=== PATIENT | male | born 1975 | race Caucasian/White ===

== ENCOUNTER 2016-06-27 10:06 | Inpatient (IN) | payer OTHER ==
--- NOTE | 2016-06-27 10:29 | PDOC ---
History of Present Illness - General History Source: Patient - History of Present Illness Initial Comments: 06/27/16 10:30 The patient is a 40-year-old man, accompanied by spouse, with a significant past medical history of alcohol abuse who presents to the emergency department for further evaluation of hyperglycemia. As per patient, he reports he has been newly diagnosed with diabetes mellitus, approximately 3 days ago, when outpatient labs showed a blood sugar in the 700s. Patient reports he has yet to see a B[employer], therefore no discussion has been made to manage his diabetes mellitus. Patient denies any family history of diabetes mellitus, both maternal/paternal. Patient reports compliance with fluids. No other complaints. No fever, chills., generalized weakness. No chest pain, lightheaded, dizziness, palpitations. No abdominal pain, nausea, vomiting, diarrhea. <Carola Ramirez - Last Filed: 06/27/16 16:54> <Julián Ochoa - Last Filed: 06/27/16 17:05> - General Chief Complaint: Blood Sugar Problem Stated Complaint: HIGH SUGAR Past History <Carola Ramirez - Last Filed: 06/27/16 16:54> - Past Medical History GI Disorders: Yes (Pancreatitis?) - Immunization History Immunization Up to Date: No - Psycho/Social/Smoking Cessation Hx Anxiety: No Suicidal Ideation: No Smoking History: Never smoked Have you smoked in the past 12 months: No Information on smoking cessation initiated: No Hx Alcohol Use: Yes (drinks daily) Substance Use Type: Alcohol <Julián Ochoa - Last Filed: 06/27/16 17:05> - Past Medical History Allergies/Adverse Reactions: Allergies Allergy/AdvReac Type Severity Reaction Status Date / Time No Known Allergies Allergy Verified 06/27/16 10:22 Home Medications: Ambulatory Orders NK [No Known Home Medication] 11/17/14 Review of Systems - Review of Systems Able to Perform ROS?: Yes Comments:: 06/27/16 10:30 GENERAL/CONSTITUTIONAL: No fever or chills. No weakness. HEAD, EYES, EARS, NOSE AND THROAT: No change in vision. No ear pain or discharge. No sore throat. CARDIOVASCULAR: No chest pain or shortness of breath. RESPIRATORY: No cough, wheezing, or hemoptysis. GASTROINTESTINAL: No nausea, vomiting, diarrhea or constipation. GENITOURINARY: No dysuria, frequency, or change in urination. MUSCULOSKELETAL: No joint or muscle swelling or pain. No neck or back pain. SKIN: No rash NEUROLOGIC: No headache, vertigo, loss of consciousness, or change in strength/ sensation. ENDOCRINE: Yes: +Hyperglycemic. HEMATOLOGIC/LYMPHATIC: No anemia, easy bleeding, or history of blood clots. ALLERGIC/IMMUNOLOGIC: No hives or skin allergy. <RamirezLuis ManuelCarola - Last Filed: 06/27/16 16:54> *Physical Exam - Vital Signs Last Vital Signs Temp Pulse Resp BP Pulse Ox 98.7 F 87 18 108/80 100 06/27/16 10:19 06/27/16 10:19 06/27/16 10:19 06/27/16 10:19 06/27/16 10:19 - Physical Exam Comments: 06/27/16 10:41 GENERAL: Awake, alert, and fully oriented, in no acute distress HEAD: No signs of trauma EYES: PERRLA, EOMI, sclera anicteric, conjunctiva clear ENT: Auricles normal inspection, hearing grossly normal, nares patent, oropharynx clear without exudates. +Dry mucosa NECK: Normal ROM, supple, no lymphadenopathy, JVD, or masses LUNGS: Breath sounds equal, clear to auscultation bilaterally. No wheezes, and no crackles HEART: Regular rate and rhythm, normal S1 and S2, no murmurs, rubs or gallops ABDOMEN: Soft, nontender, normoactive bowel sounds. No guarding, no rebound. No masses EXTREMITIES: Normal range of motion, no edema. No clubbing or cyanosis. No cords, erythema, or tenderness NEUROLOGICAL: Cranial nerves II through XII grossly intact. Normal speech <Ramirez,Carola - Last Filed: 06/27/16 16:54> - Vital Signs Last Vital Signs Temp Pulse Resp BP Pulse Ox 98.7 F 87 18 108/80 100 06/27/16 10:19 06/27/16 10:19 06/27/16 10:19 06/27/16 10:19 06/27/16 10:19 <Julián Ochoa - Last Filed: 06/27/16 17:05> ED Treatment Course - LABORATORY CBC & Chemistry Diagram: 06/27/16 10:50 06/27/16 10:50 <Carola Ramirez - Last Filed: 06/27/16 16:54> - LABORATORY CBC & Chemistry Diagram: 06/27/16 10:50 06/27/16 10:50 <Julián Ochoa - Last Filed: 06/27/16 17:05> Medical Decision Making - Medical Decision Making 06/27/16 16:55 Spoke to his PCP, Dr. Adrian Carrasco. Case was discussed. Accepts case. <Carola Ramirez - Last Filed: 06/27/16 16:54> *DC/Admit/Observation/Transfer - Attestations Scribe Attestion: 06/27/16 10:42 Documentation prepared by Carola Ramirez, acting as medical sonographer for Julián Ochoa MD. <Carola Ramirez - Last Filed: 06/27/16 16:54> - Discharge Dispostion Admit: Yes <Julián Ochoa - Last Filed: 06/27/16 17:05> Diagnosis at time of Disposition: Diabetes mellitus Qualifiers: Diabetes mellitus type: type 1 Diabetes mellitus complication status: with hyperglycemia Qualified Code(s): E10.65 - Type 1 diabetes mellitus with hyperglycemia - Discharge Dispostion Condition at time of disposition: Stable
[2016-06-27] MEDS ORDERED: SODIUM CHLORIDE 2,000 ML IV STA (10:45)
[2016-06-27 11:11] LABS: BASOPHIL 1.3 % (0-2.0); MCH 29.5 pg (25.7-33.7); MCHC 34.2 g/dl (32.0-35.9); MEAN CELL VOLUME 86.4 fl (80-96); MEAN PLT VOLUME 9.2 fl (7.5-11.1); NEUTROPHILS 43.9 % (42.8-82.8); PLATELET COUNT 219 K/MM3 (134-434); RDW 12.3 % (11.9-15.9); WHITE BLOOD COUNT 3.3 K/mm3 (4.0-10.0)
[2016-06-27 11:34] LABS: ALBUMIN 4.4 g/dl (3.4-5.0); ALK PHOS 136 U/L (45-117); ANION GAP 12 (8-16); BILIRUBIN,TOTAL 1.2 mg/dL (0.2-1.0); CALCIUM 9.5 mg/dL (8.5-10.1); CO2 26 mmol/L (21-32); SGOT/AST 14 U/L (15-37); SGPT/ALT 21 U/L (12-78); TOT PROT 7.4 g/dl (6.4-8.2)
[2016-06-27 11:42] LABS: ARTERIAL BLD GAS O2 SATURATION 95.7 % (90-98.9); ARTERIAL BLOOD GAS BASE EXCESS -4.8 meq/l (-2-2); ARTERIAL BLOOD GAS HCO3 19.9 meq/L (22-26); ARTERIAL BLOOD GAS PO2 93.9 mmHg (80-100); ARTERIAL BLOOD GAS pH 7.35 (7.35-7.45)
[2016-06-27 11:43] LABS: ALLENS TEST POSITIVE; ART PUNCT SITE LEFT RADIAL; LPM/O2% 21%; METHEMOGLOBIN 1.6 % (0.4-1.5); PT. ON O2? NO; TYPE OF O2 ROOM AIR
[2016-06-27 11:48] LABS: GLUCOSE,RANDOM 397 mg/dL (74-106)
[2016-06-27 12:04] LABS: URINE APPEARANCE CLEAR; URINE BILIRUBIN NEGATIVE (NEGATIVE); URINE BLOOD NEGATIVE (NEGATIVE); URINE COLOR STRAW; URINE GLUCOSE (UA) 3+ (NEGATIVE); URINE KETONE 2+ (NEGATIVE); URINE LEUK ESTERASE NEGATIVE (NEGATIVE); URINE NITRITE NEGATIVE (NEGATIVE); URINE PROTEIN NEGATIVE (NEGATIVE); URINE UROBILINOGEN NEGATIVE E.U./dl (0.2-1.0)
[2016-06-27 12:43] LABS: URINE MARIJUANA THC NEGATIVE ng/ml (CUTOFF=50)
[2016-06-27 13:34] LABS: ACETONE SERUM NEGATIVE (NEGATIVE)
[2016-06-27] MEDS ORDERED: INSULIN REGULAR HUMAN 100 UNITS/ML *VIAL IVPUSH ONE (14:41)
[2016-06-27] MEDS ORDERED: INSULIN REGULAR HUMAN 100 UNITS/ML *VIAL ONE (14:53)
[2016-06-27 18:28] VITALS: BMI 23.0
[2016-06-27] MEDS ORDERED: INSULIN DETEMIR 100 UNITS/ML MDV SQ SCH (22:00)
[2016-06-27] MEDS ORDERED: INSULIN DETEMIR 100 UNITS/ML MDV SQ ONE (23:15)
[2016-06-28] MEDS: INSULIN SLIDING SCALE (NOVOLOG) 1 VIAL SQ SCH ×4 (00:16→18:19)
[2016-06-28 07:44] LABS: CHOLESTEROL 193 mg/dL (50-200)
[2016-06-28 07:46] LABS: LDL CHOLESTEROL (ONLY SJRH) 124 mg/dL (5-100)
--- NOTE | 2016-06-28 09:46 | EKG ---
Test Reason : Blood Pressure : / mmHG Vent. Rate : 065 BPM Atrial Rate : 065 BPM P-R Int : 150 ms QRS Dur : 102 ms QT Int : 412 ms P-R-T Axes : 059 079 063 degrees QTc Int : 428 ms NORMAL SINUS RHYTHM EARLY REPOLARIZATION NORMAL ECG WHEN COMPARED WITH ECG OF 18-NOV-2014 03:04, NO SIGNIFICANT CHANGE WAS FOUND Confirmed by MARILU WADDELL MD ([id number]) on 06/28/2016 9:45:59 AM Referred By: Overread By: MARILU WADDELL MD
--- NOTE | 2016-06-28 10:42 | HP ---
Admitting History and Physical - Primary Care Physician PCP: Adrian Carrasco - Admission Chief Complaint: Weight Loss History of Present Illness: Pt is a 40 yr old man admitted for new onset DM. He was seen last Monday in my office where he presented for evaluation of weight loss. He lost at least 40 lbs in about 4-6 months. This was associated with polyuria and polydipsia. Labs done showed Glu 697 with Bicarb of 15, and he was advised to go to the ED on Monday. He came yesterday and was admitted. History Source: Patient Limitations to Obtaining History: No Limitations - Past Medical History Gastrointestinal: Yes: Pancreatitis Hepatobiliary: Yes: Other (Steatosis) - Past Surgical History Past Surgical History: Yes: None - Smoking History Smoking history: Never smoked Have you smoked in the past 12 months: No - Alcohol/Substance Use Hx Alcohol Use: Yes (drinks daily) Home Medications - Allergies Allergies/Adverse Reactions: Allergies Allergy/AdvReac Type Severity Reaction Status Date / Time No Known Allergies Allergy Verified 06/27/16 10:22 - Home Medications Home Medications: Ambulatory Orders NK [No Known Home Medication] 11/17/14 Family Disease History - Family Disease History Family History: Denies Review of Systems - Review of Systems Constitutional: reports: Unintentional Wgt. Loss, Weakness Genitourinary: reports: Frequency Physical Examination Vital Signs: Vital Signs Temperature 97.6 F 06/28/16 06:00 Pulse Rate 77 06/28/16 06:00 Respiratory Rate 18 06/28/16 06:00 Blood Pressure 106/59 06/28/16 06:00 O2 Sat by Pulse Oximetry (%) 100 06/27/16 20:33 Constitutional: Yes: Thin Eyes: Yes: Conjunctiva Clear, PERRL HENT: Yes: Normocephalic Neck: Yes: Trachea Midline Cardiovascular: Yes: Regular Rate and Rhythm Respiratory: Yes: CTA Bilaterally Gastrointestinal: Yes: Normal Bowel Sounds, Soft. No: Tenderness Neurological: Yes: Alert, Oriented Imaging - Results Chest X-ray: Report Reviewed Problem List - Problems (1) Diabetes mellitus Code(s): E11.9 - TYPE 2 DIABETES MELLITUS WITHOUT COMPLICATIONS Qualifiers: Diabetes mellitus type: type 1 Qualified Code(s): E10.65 - Type 1 diabetes mellitus with hyperglycemia Assessment/Plan Pt with new onset DM Start Levemir 10u QHS Novolog sliding scale FSS AC Diabetic teaching ADA 1800 saeed Nutrition cosult Start Atorvastatin 10 mg QHS Start Losartan 25 mg QD Start Janumet 50/500 mg QD
[2016-06-28] MEDS: LOSARTAN POTASSIUM 25 MG TABLET PO SCH (13:11)
--- NOTE | 2016-06-28 16:02 | CONSULT ---
Consult Consult Specialty:: Endocrinology Referred by:: Dr Carrasco Reason for Consultation:: Hyperglycemia - History of Present Illness Chief Complaint: Weight loss History of Present Illness: This is a 40 yr old man with h/o ETOH abuse ( stopped 2 years ago) Chronic pancreatitis who presented to ED sent by his PCP with c/O Wt loss, Polyuria, polydipsia and New onset DM. He was seen last Monday in PCP's office for for evaluation of weight loss of 40 lbs in last few months and found have a blood Glu 697 with Bicarb of 15, and he was advised to go to the ED on Monday. He came yesterday and was admitted. Pt currently feels better. C/O blurred vision but no paresthesia of feet. No family h/o DM. - History Source History Provided By: Patient, Medical Record Limitations to Obtaining History: No Limitations - Past Medical History Gastrointestinal: Yes: Pancreatitis Hepatobiliary: Yes: Other (Steatosis) Endocrine: Yes: Diabetes Mellitus - Past Surgical History Past Surgical History: Yes: None - Alcohol/Substance Use Hx Alcohol Use: Yes (drinks daily) - Smoking History Smoking history: Never smoked Have you smoked in the past 12 months: No Home Medications - Allergies Allergies/Adverse Reactions: Allergies Allergy/AdvReac Type Severity Reaction Status Date / Time No Known Allergies Allergy Verified 06/27/16 10:22 - Home Medications Home Medications: Ambulatory Orders NK [No Known Home Medication] 11/17/14 Family Disease History - Family Disease History Other Family History: No family h/o DM Review of Systems - Review of Systems Constitutional: reports: No Symptoms Eyes: reports: Blurred Vision HENT: reports: No Symptoms Neck: reports: No Symptoms Cardiovascular: reports: No Symptoms Respiratory: reports: No Symptoms Gastrointestinal: reports: No Symptoms Genitourinary: reports: Other (Polyuria, polydipsia) Breasts: reports: No Symptoms Reported Musculoskeletal: reports: No Symptoms Integumentary: reports: No Symptoms Neurological: reports: No Symptoms Physical Exam Vital Signs: Vital Signs Temperature 98 F 06/28/16 14:05 Pulse Rate 91 H 06/28/16 14:05 Respiratory Rate 20 06/28/16 14:05 Blood Pressure 104/61 06/28/16 14:05 O2 Sat by Pulse Oximetry (%) 100 06/27/16 20:33 Constitutional: Yes: No Distress, Calm Eyes: Yes: Conjunctiva Clear, EOM Intact HENT: Yes: Atraumatic, Normocephalic Neck: Yes: Supple, Trachea Midline Cardiovascular: Yes: Regular Rate and Rhythm Respiratory: Yes: Regular, CTA Bilaterally Gastrointestinal: Yes: Normal Bowel Sounds, Soft Musculoskeletal: Yes: WNL Extremities: Yes: WNL Edema: No Integumentary: Yes: WNL Neurological: Yes: Alert, Oriented Problem List - Problems (1) Diabetes mellitus Code(s): E11.9 - TYPE 2 DIABETES MELLITUS WITHOUT COMPLICATIONS Qualifiers: Diabetes mellitus type: type 1 Assessment/Plan DM: possible secondary to pancreatitis In view of acidosis with CO2 of [address] Carrasco's office, will continue Insulin until tests confirm that pt is type 2 diabetic. Hold Januvia in view of h/o Pancreatitis continue Metformin Levemir 12 units daily Novlog SS coverage Nutrition consult Hypertriglyceridemia: Lovaza 2 gm BID, On Atorvastatin Chronic Pancreatitis H/O Etoh abuse
[2016-06-28] MEDS ORDERED: INSULIN SLIDING SCALE (NOVOLOG) 1 VIAL SQ SCH (22:00)
[2016-06-28] MEDS ORDERED: INSULIN DETEMIR 100 UNITS/ML MDV SQ SCH (22:00)
[2016-06-28] MEDS ORDERED: ATORVASTATIN CA 10 MG TABLET (FP) PO SCH (22:00)
[2016-06-28] MEDS: OMEGA-3 ACID ETHYL ESTERS (FATTY-ACIDS) 1 GM CAPSULE (FP) PO SCH (22:01)
[2016-06-29] MEDS: INSULIN SLIDING SCALE (NOVOLOG) 1 VIAL SQ SCH ×3 (06:13→18:22)
[2016-06-29] MEDS ORDERED: INSULIN (NOVOLOG) ASPART 100 UNITS/ML 10ML VIAL ONE (06:53)
[2016-06-29] MEDS ORDERED: INSULIN DETEMIR 100 UNITS/ML MDV SQ ONE (06:53)
[2016-06-29] MEDS ORDERED: metFORMIN HCL 500 MG TABLET (FP) PO SCH (07:00)
[2016-06-29] MEDS ORDERED: sitaGLIPtin PHOSPHATE 50 MG TABLET PO SCH (07:00)
[2016-06-29] MEDS: LOSARTAN POTASSIUM 25 MG TABLET PO SCH (11:34)
[2016-06-29] MEDS: OMEGA-3 ACID ETHYL ESTERS (FATTY-ACIDS) 1 GM CAPSULE (FP) PO SCH (11:35)
--- NOTE | 2016-06-29 15:02 | PN ---
Progress Note (short form) - Note Progress Note: Feels good Denies any complaints Able to self inject insulin Vital Signs Period Temp Pulse Resp BP Sys/Bailey Pulse Ox Last 24 Hr 97.2 F-98.4 F 64-94 18-20 102-131/58-66 100 PE: AOx3 Neck: Supple, No JVD HEENT: PERRL, EOMI Lungs: CTA Abd: Benign CVS: S1S2 EXt:No edema Neuro: NO focal deficit CMP Sodium 133 mmol/L (136-145) L D 06/27/16 10:50 Potassium 4.3 mmol/L (3.5-5.1) 06/27/16 10:50 Chloride 95 mmol/L (98-107) L D 06/27/16 10:50 Carbon Dioxide 26 mmol/L (21-32) 06/27/16 10:50 Anion Gap 12 (8-16) 06/27/16 10:50 BUN 9 mg/dL (7-18) 06/27/16 10:50 Creatinine 1.0 mg/dL (0.7-1.3) 06/27/16 10:50 Creat Clearance w eGFR > 60 (>60) 06/27/16 10:50 POC Glucometer 247 UNITS (()) 06/29/16 13:13 Random Glucose 397 mg/dL (74-106) H* D 06/27/16 10:50 Hemoglobin A1c % 15.4 % (4.8-6.0) H 06/27/16 10:50 Calcium 9.5 mg/dL (8.5-10.1) 06/27/16 10:50 Total Bilirubin 1.2 mg/dL (0.2-1.0) H D 06/27/16 10:50 AST 14 U/L (15-37) L D 06/27/16 10:50 ALT 21 U/L (12-78) D 06/27/16 10:50 Alkaline Phosphatase 136 U/L (45-117) H 06/27/16 10:50 Total Protein 7.4 g/dl (6.4-8.2) 06/27/16 10:50 Albumin 4.4 g/dl (3.4-5.0) 06/27/16 10:50 Triglycerides 657 mg/dL (35-160) H 06/28/16 06:00 Cholesterol 193 mg/dL (50-200) 06/28/16 06:00 Total LDL Cholesterol 124 mg/dL (5-100) H 06/28/16 06:00 HDL Cholesterol 34 mg/dL (40-60) L 06/28/16 06:00 Current Medications Generic Name Dose Route Start Last Admin Trade Name Azar PRN Reason Stop Dose Admin Atorvastatin Calcium 10 mg 06/28/16 22:00 06/28/16 22:01 Lipitor - PO 10 mg HS LUIS ANTONIO Administration Insulin Aspart 1 vial 06/28/16 16:30 06/29/16 14:34 Novolog Vial Sliding Scale - SQ 4 units TIDAC LUIS ANTONIO Administration Protocol Insulin Aspart 1 vial 06/28/16 22:00 06/28/16 22:02 Novolog Vial Sliding Scale - SQ 2 unit HS LUIS ANTONIO Administration Protocol Insulin Detemir 12 units 06/28/16 22:00 06/28/16 22:00 Levemir Vial SQ 12 unit HS LUIS ANTONIO Administration Losartan Potassium 25 mg 06/28/16 10:00 06/29/16 11:34 Cozaar - PO 25 mg DAILY LUIS ANTONIO Administration Metformin HCl 500 mg 06/29/16 07:00 06/29/16 06:13 Glucophage - PO 500 mg DAILY@0700 LUIS ANTONIO Administration Axzon-8-Lcch Ethyl Esters 2 gm 06/28/16 22:00 06/29/16 11:35 Lovaza - PO 2 gm BID LUIS ANTONIO Administration AP DM: possible secondary to pancreatitis, ?Ketosis prone diabetes mellitus In view of acidosis with CO2 of [address] Carrasco's office, will continue Insulin until tests confirm that pt is type 2 diabetic. Hold Januvia in view of h/o Pancreatitis continue Metformin Levemir 12 units daily Novlog SS coverage Nutrition consult CPeptide, CELIO Ab. Islet cell ab as outpt. Hypertriglyceridemia: Lovaza 2 gm BID, On Atorvastatin Chronic Pancreatitis H/O Etoh abuse Problem List - Problems (1) Diabetes mellitus Code(s): E11.9 - TYPE 2 DIABETES MELLITUS WITHOUT COMPLICATIONS Qualifiers: Diabetes mellitus type: type 1
--- NOTE | 2016-06-29 17:04 | PN ---
Progress Note (short form) - Note Progress Note: Pt doing better VSS Sugars better Will DC today Follow up Monday Problem List - Problems (1) Diabetes mellitus Code(s): E11.9 - TYPE 2 DIABETES MELLITUS WITHOUT COMPLICATIONS Qualifiers: Diabetes mellitus type: type 1
[2016-06-29 18:34] VITALS: BP 112/67; PULSE 91; TEMP 98.1
== END 2016-06-29 18:42 | disposition home or self-care (01) | DRG 638 ==
LOC: JER 10:06 → UNDOADMIN 17:12 → JERBED 17:12 → J7W 17:20 → JERBED 17:47 → J7W 17:47
PROVIDERS: ADMIT Internal Medicine Infectious Disease; ATTEND Internal Medicine Infectious Disease
DX: E11.9 Type 2 diabetes mellitus without complications (principal); K86.1 Other chronic pancreatitis; F10.10 Alcohol abuse, uncomplicated; E88.89 Other specified metabolic disorders; R63.4 Abnormal weight loss; Z68.23 Body mass index [BMI] 23.0-23.9, adult; E78.1 Pure hyperglyceridemia
CPT/HCPCS: 36415; 36600; 71010-TC; 80053; 80061; 81003; 82009; 82375; 82803; 83036; 83050; 83721; 85025; 87086; 93005; 93010; 99284-25; G0479

== ENCOUNTER 2021-02-02 10:48 | Emergency (ER) | payer OTHER ==
[2021-02-02 11:12] VITALS: BP 119/82; PULSE 116; TEMP 97.8; BMI 18.4
[2021-02-02 12:48] LABS: BASO % 0.6 % (0-2.0); EOS % 0.2 % (0-4.5); HEMATOCRIT 39.7 % (35.4-49); HEMOGLOBIN 13.8 GM/dL (11.7-16.9); LYMPH % 47.8 % (8-40); MCH 29.3 pg (25.7-33.7); MCHC 34.9 g/dl (32.0-35.9); MEAN CELL VOLUME 83.9 fl (80-96); MEAN PLT VOLUME 6.9 fl (7.5-11.1); MONO % 10.4 % (3.8-10.2); PLATELET COUNT 395 10^3/uL (134-434); RBC 4.72 M/mm3 (4.00-5.60); RDW 11.6 % (11.9-15.9); WHITE BLOOD COUNT 3.5 K/mm3 (4.0-10.0)
[2021-02-02 13:12] LABS: ALBUMIN 4.4 g/dl (3.4-5.0); BLOOD UREA NITROGEN 8.8 mg/dL (7-18); CALCIUM 9.1 mg/dL (8.5-10.1)
[2021-02-02 13:15] LABS: CREATININE 0.7 mg/dL (0.55-1.3)
[2021-02-02 13:16] LABS: BILIRUBIN,TOTAL 1.4 mg/dL (0.2-1); TOT PROT 7.2 g/dl (6.4-8.2)
== END 2021-02-02 14:15 | disposition home or self-care (01) ==
LOC: JER 10:48
DX: E11.42 Type 2 diabetes mellitus with diabetic polyneuropathy (principal)
CPT/HCPCS: 36415; 80053; 85025; 99283-25